=== PATIENT | female | born 1945 | race Caucasian/White ===

== ENCOUNTER 2023-05-29 07:36 | Day surgery (SDC) | payer SELFPAY ==
[2023-05-22 10:39] VITALS: BMI 24.6
[2023-05-29 08:00] VITALS: RESP 19
[2023-05-29] MEDS ORDERED: BACITRACIN/POLYMYXIN OPH OINT 3.5 GM TUBE ONE (08:12)
[2023-05-29] MEDS ORDERED: POVIDONE-IODINE 5% OPHTHALMIC PREP 30 ML SOLUTION ONE (08:13)
[2023-05-29] MEDS ORDERED: BUPIVACAINE HCL/EPINEPHRINE/PF 30 ML VIAL IJ ONE (08:13)
[2023-05-29] MEDS ORDERED: LIDOCAINE HCL 1%, 10 MG/ML (20ML VIAL) ONE (08:13)
[2023-05-29] MEDS ORDERED: BSS (NA/CA/MG/K) BALANCED SALT SOLUTION OPHTH SOLN 15 ML BOTTLE ONE (08:14)
[2023-05-29] MEDS ORDERED: LIDOCAINE 1%/EPI 1:100000 (20 ML MULTI DOSE VIAL) ONE (08:48)
[2023-05-29] MEDS ORDERED: MIDAZOLAM HCL 2 MG/2 ML SINGLE DOSE VIAL ONE (09:18)
[2023-05-29] MEDS ORDERED: PROPOFOL 40 ML ONE (09:29)
[2023-05-29] MEDS: BUPIVACAINE 0.25% /EPI 1:200,000 10 ML VIAL NR ONE (09:47)
[2023-05-29] MEDS ORDERED: PROPOFOL 20 ML ONE (11:35)
[2023-05-29] MEDS ORDERED: GUM MASTIC/STORAX/MSAL/ALCOHOL 1 DRP DROPSBTL MC ONE (11:40)
[2023-05-29] MEDS ORDERED: oxyCODONE HCL 5 MG TABLET PO PRN (11:55)
[2023-05-29] MEDS ORDERED: ONDANSETRON 4 MG/2 ML VIAL IVPUSH PRN (11:55)
[2023-05-29] MEDS ORDERED: LACTATED RINGERS SOLUTION 1,000 ML IV SCH (12:00)
[2023-05-29] MEDS: ACETAMINOPHEN 1000 MG/100 ML BAG IVPB ONE (12:30)
[2023-05-29 13:19] VITALS: TEMP 97.5
[2023-05-29 13:30] VITALS: BP 142/60; PULSE 76
== END 2023-05-29 13:53 | disposition home or self-care (01) ==
LOC: FASU 07:36
PROVIDERS: ATTEND Plastic Surgery
CPT/HCPCS: 94760; J0131